=== PATIENT | female | born 2005 | race Caucasian/White ===

== ENCOUNTER 2025-01-23 16:17 | Inpatient (IN) | payer BC, MEDICAID ==
[2025-01-23 16:35] LABS: APPEARANCE,URINE CLEAR; GLUCOSE,URINE NEGATIVE (NEGATIVE); OCCULT BLOOD,URINE NEGATIVE (NEGATIVE)
[2025-01-23] MEDS ORDERED: Sodium Chloride 0.9% 2.5 ML Syringe FLUSH PRN (17:39)
[2025-01-23] MEDS ORDERED: Sodium Chloride 0.9% 10 ML Syringe FLUSH PRN (17:39)
[2025-01-23] MEDS ORDERED: Carboprost Tromethamine 250 MCG/1 mL Vial IM PRN (17:39)
[2025-01-23] MEDS ORDERED: Oxytocin/0.9 % Sodium Chloride 30 UNIT/500 ML BAG IV SCH (17:45)
[2025-01-23] MEDS: Lactated Ringers 1,000 ML IV SCH (17:59)
[2025-01-23 18:22] LABS: BASOPHILS ABSOLUTE AUTO 0.03 K/uL (0.00-0.30); BASOPHILS PERCENT AUTO 0.2 % (0.0-1.0); EOSINOPHILS ABSOLUTE AUTO 0.08 K/uL (0.00-0.70); EOSINOPHILS PERCENT AUTO 0.6 % (0.0-5.0); IMMATURE GRAN ABSOLUTE AUTO 0.09 K/uL (0.00-0.05); IMMATURE GRAN PERCENT AUTO 0.7 % (0.0-0.4); LYMPHOCYTES ABSOLUTE AUTO 1.61 K/uL (2.00-8.80); LYMPHOCYTES PERCENT AUTO 12.6 % (50.0-65.0); MEAN PLATELET VOLUME 10.6 fL (9.4-12.3); MONOCYTES ABSOLUTE AUTO 0.75 K/uL (0.10-1.40); MONOCYTES PERCENT AUTO 5.9 % (2.0-10.0); NEUTROPHILS ABSOLUTE AUTO 10.24 K/uL (1.50-8.50); NEUTROPHILS PERCENT AUTO 80.0 % (35.0-45.0); NRBC ABSOLUTE 0.00 K/uL (0.00-0.03); NRBC PERCENT 0.0 /100WBC (0.0-0.2); PLATELET COUNT,PLT 204 K/uL (150-400); RED BLOOD CELL COUNT 3.75 M/uL (4.10-5.30); WHITE BLOOD CELL COUNT,WBC 12.80 K/uL (4.5-13.5)
[2025-01-23] MEDS: Ropivacaine HCl/PF 400 MG in Premix Bag 1 BAG EPIDUR SCH (18:50)
[2025-01-23] MEDS ORDERED: ePHEDrine 50 MG/ML SDV IM PRN (19:04)
[2025-01-23] MEDS ORDERED: ePHEDrine 50 MG/ML SDV IVPUSH PRN (19:04)
[2025-01-23] MEDS ORDERED: dexmedeTOMIDine HCl 200 MCG/2 ML SDV EPIDUR SCH (19:15)
[2025-01-23] MEDS: Oxytocin/0.9 % Sodium Chloride 30 UNIT/500 ML BAG IV SCH (19:47)
[2025-01-23 23:23] LABS: PH,UMBILICAL ARTERIAL 7.27 (7.18-7.38); PH,UMBILICAL VENOUS 7.37 (7.25-7.45)
[2025-01-24] MEDS: Benzocaine/Menthol 20%-0.5% Spray 78 GM Cannister TOP PRN (02:08)
[2025-01-24] MEDS: Lanolin 100% Cream 7 GM Tube TOP PRN (02:09)
[2025-01-24] MEDS: Witch Hazel Medicated Pads 40/Jar TOP PRN (02:10)
[2025-01-24] MEDS: Prenatal Multivitamin with Calcium/Folic Acid/Iron Tab PO SCH (08:09)
[2025-01-24] MEDS: Oxytocin/0.9 % Sodium Chloride 30 UNIT/500 ML BAG ONE (13:30)
[2025-01-24] MEDS: dexmedeTOMIDine HCl 200 MCG/2 ML SDV ONE (13:31)
[2025-01-24] MEDS: Ropivacaine HCl/PF 200 ML ONE (13:31)
== END 2025-01-25 16:00 | disposition home or self-care (01) | DRG 560 ==
LOC: MW.OB 16:17 → MW.OBCHECK 16:17 → MW.OB 20:40 → MW.OBCHECK 21:22 → OBSVTOIN 22:29 → MW.OB 01-24 01:26
PROVIDERS: ADMIT Obstetrics & Gynecology; ATTEND Obstetrics & Gynecology
PROC: 10E0XZZ Delivery of Products of Conception, External Approach (ICD-10-PCS; principal; 2025-01-23)
PROC: 3E0R3BZ Introduction of Anesthetic Agent into Spinal Canal, Percutaneous Approach (ICD-10-PCS; 2025-01-23)
PROC: 0UQMXZZ Repair Vulva, External Approach (ICD-10-PCS; 2025-01-23)
DX: O42.92 Full-term premature rupture of membranes, unspecified as to length of time between rupture and onset of labor (principal); O99.02 Anemia complicating childbirth; Z3A.37 37 weeks gestation of pregnancy; Z37.0 Single live birth; O71.82 Other specified trauma to perineum and vulva; Z87.891 Personal history of nicotine dependence; Z79.899 Other long term (current) drug therapy
CPT/HCPCS: 01967; 36415; 51702; 59025; 59409; 81003; 82803; 84112; 85025; 86592; 86850; 86900; 86901; A9270-GY; J0665; J2590; J2795; J7120